=== PATIENT | female | born 1985 | race Hispanic/Latino ===

== ENCOUNTER 2018-07-19 20:26 | Emergency (ER) | payer OTHER ==
[2018-07-19 20:48] LABS: APPEARANCE,URINE SL CLOUDY (CLEAR); BILIRUBIN,URINE NEGATIVE (NEGATIVE); COLOR,URINE YELLOW (YELLOW); GLUCOSE, URINE (UA) NEGATIVE (NEGATIVE); KETONES,URINE NEGATIVE (NEGATIVE); LEUKOCYTE ESTERASE ,URINE NEGATIVE (NEGATIVE); NITRATE,URINE NEGATIVE (NEGATIVE); OCCULT BLOOD,URINE SMALL (NEGATIVE); PROTEIN,URINE NEGATIVE (NEGATIVE); UROBILINOGEN,URINE 0.2 mg/dL (0.2-1.0)
[2018-07-19 20:51] LABS: HCG,QUAL RESULT NEGATIVE (NEGATIVE)
[2018-07-19 20:58] LABS: BACTERIA,URINE Rare /HPF (None Seen); SQUAMOUS EPITHELIAL CELL,UR Few /HPF (0-2); WBC,URINE 0-1 /HPF (0-1)
[2018-07-19 21:04] LABS: BASOPHILS % (AUTO) 1.1 % (0.0-5.0); EOSINOPHILS % (AUTO) 3.1 % (0.0-8.0); HEMATOCRIT 32.7 % (36-48); LYMPHOCYTES % (AUTO) 33.6 % (21.0-51.0); MEAN CORPUSCULAR HEMOGLOBIN 26.3 pg (27.0-33.0); MEAN CORPUSCULAR HGB CONC 33.2 g/dL (32.0-36.0); MEAN CORPUSCULAR VOLUME 79.4 fL (79-99); MONOCYTES % (AUTO) 5.6 % (3.0-13.0); NEUTROPHILS % (AUTO) 56.6 % (40.0-77.0); PLATELET COUNT (AUTO) 303 K/uL (130-400); RED BLOOD CELL COUNT(AUTO) 4.11 MIL/uL (4.00-5.50); RED CELL DISTRIBUTION WIDTH 14.8 % (11.0-15.5); WHITE BLOOD COUNT (AUTO) 8.1 K/uL (4.8-10.8)
[2018-07-19 21:14] LABS: CREATININE 0.7 mg/dL (0.5-1.5); POTASSIUM 3.7 mmol/L (3.5-5.1)
[2018-07-19 21:18] LABS: ALBUMIN 3.9 g/dL (3.5-5.0); BILIRUBIN,TOTAL 0.3 mg/dL (0.2-1.0); TOTAL PROTEIN, SERUM 7.8 g/dL (6.0-8.3)
== END 2018-07-19 22:33 | disposition home or self-care (01) ==
LOC: EDH 20:26
DX: I16.0 Hypertensive urgency (principal); I10 Essential (primary) hypertension; M79.642 Pain in left hand; Z98.51 Tubal ligation status; Z98.890 Other specified postprocedural states
CPT/HCPCS: 36415; 80053; 81001; 81025; 85025

== ENCOUNTER → 2020-04-19 | Outpatient (CLI) | payer BC | END | disposition home or self-care (01) | LOC: SHCH 15:38 | PROVIDERS: ATTEND Internal Medicine | DX: I37.1 Nonrheumatic pulmonary valve insufficiency (principal); R06.01 Orthopnea | CPT/HCPCS: 93306; 93356 ==

== ENCOUNTER 2023-05-09 15:09 | Emergency (ER) | payer BC ==
[~2023-05-09] VITALS: Ht 157.5 cm; Wt 76.7 kg
[2023-05-09 15:46] LABS: BASOPHILS # (AUTO) 0.04 K/uL (0.00-0.20); BASOPHILS % (AUTO) 0.6 % (0.0-5.0); EOSINOPHILS # (AUTO) 0.29 K/uL (0.00-0.70); EOSINOPHILS % (AUTO) 4.2 % (0.0-8.0); HEMATOCRIT 39.3 % (36-48); IMMATURE GRANULOCYTE ABSOLUTE 0.02 K/uL (0-1); LYMPHOCYTES # (AUTO) 2.3 K/uL (1.0-4.8); LYMPHOCYTES % (AUTO) 33.2 % (21.0-51.0); MEAN CORPUSCULAR HGB CONC 33.3 g/dL (32.0-36.0); MEAN CORPUSCULAR VOLUME 89.9 fL (79-99); MONOCYTES # (AUTO) 0.4 K/uL (0.1-1.0); MONOCYTES % (AUTO) 5.2 % (3.0-13.0); NEUTROPHILS # (AUTO) 3.9 K/uL (1.8-7.7); NEUTROPHILS % (AUTO) 56.5 % (40.0-77.0); PLATELET COUNT (AUTO) 237 K/uL (130-400); RED BLOOD CELL COUNT(AUTO) 4.37 MIL/uL (4.00-5.50); RED CELL DISTRIBUTION WIDTH 12.2 % (11.0-15.5); WHITE BLOOD COUNT (AUTO) 6.9 K/uL (4.8-10.8)
[2023-05-09 16:11] LABS: B-TYPE NATRIURETIC PEPTIDE 7 pg/mL (0-100)
[2023-05-09 16:21] LABS: CREATININE 0.7 mg/dL (0.5-1.5); POTASSIUM 3.6 mmol/L (3.5-5.1)
[2023-05-09 16:25] LABS: BILIRUBIN,TOTAL 0.4 mg/dL (0.2-1.0); TOTAL PROTEIN, SERUM 7.8 g/dL (6.0-8.3)
[2023-05-09 17:34] LABS: INR < 0.93 (0.85-1.15); PROTHROMBIN TIME 10.3 SEC (9.6-11.6)
[2023-05-09 18:36] VITALS: BP 133/74; PULSE 78; RESP 18; O2SAT 98
== END 2023-05-09 18:37 | disposition home or self-care (01) ==
LOC: EDH 15:09
DX: R07.89 Other chest pain (principal); F41.9 Anxiety disorder, unspecified; F32.A Depression, unspecified; Z90.710 Acquired absence of both cervix and uterus; Z98.890 Other specified postprocedural states
CPT/HCPCS: 36415; 71045; 80053; 83880; 84484; 85025; 85610; 93005

== ENCOUNTER 2024-05-24 15:57 | Emergency (ER) | payer BC ==
[~2024-05-24] VITALS: Ht 157.5 cm; Wt 74.8 kg
[2024-05-24 16:24] LABS: APPEARANCE,URINE CLEAR (CLEAR); BILIRUBIN,URINE NEGATIVE (NEGATIVE); COLOR,URINE LIGHT-YELLOW (YELLOW); GLUCOSE, URINE (UA) NEGATIVE (NEGATIVE); KETONES,URINE NEGATIVE (NEGATIVE); LEUKOCYTE ESTERASE ,URINE NEGATIVE Leu/uL (NEGATIVE); NITRATE,URINE NEGATIVE (NEGATIVE); OCCULT BLOOD,URINE NEGATIVE (NEGATIVE); PH,URINE 6.5 (5.0-8.0); PROTEIN,URINE NEGATIVE (NEGATIVE); UROBILINOGEN,URINE 0.2 mg/dL (0.2-1.0)
[2024-05-24 16:25] LABS: ADD UA MICROSCOPIC NO
[2024-05-24 16:43] LABS: BASOPHILS # (AUTO) 0.04 K/uL (0.00-0.20); BASOPHILS % (AUTO) 0.5 % (0.0-5.0); EOSINOPHILS # (AUTO) 0.25 K/uL (0.00-0.70); EOSINOPHILS % (AUTO) 3.4 % (0.0-8.0); HEMATOCRIT 38.3 % (36-48); IMMATURE GRANULOCYTE ABSOLUTE 0.03 K/uL (0-1); LYMPHOCYTES # (AUTO) 2.2 K/uL (1.0-4.8); LYMPHOCYTES % (AUTO) 30.1 % (21.0-51.0); MEAN CORPUSCULAR HEMOGLOBIN 30.1 pg (27.0-33.0); MEAN CORPUSCULAR HGB CONC 33.9 g/dL (32.0-36.0); MEAN CORPUSCULAR VOLUME 88.7 fL (79-99); MONOCYTES # (AUTO) 0.3 K/uL (0.1-1.0); NEUTROPHILS # (AUTO) 4.5 K/uL (1.8-7.7); NEUTROPHILS % (AUTO) 61.6 % (40.0-77.0); PLATELET COUNT (AUTO) 234 K/uL (130-400); RED BLOOD CELL COUNT(AUTO) 4.32 MIL/uL (4.00-5.50); RED CELL DISTRIBUTION WIDTH 12.2 % (11.0-15.5); WHITE BLOOD COUNT (AUTO) 7.3 K/uL (4.8-10.8)
[2024-05-24 16:49] LABS: CREATININE 0.6 mg/dL (0.5-1.0); POTASSIUM 3.3 mmol/L (3.5-5.1)
[2024-05-24 17:07] VITALS: BP 150/96; PULSE 95; RESP 18; TEMP 98; O2SAT 100
[2024-05-24] MEDS: PoTASSium BIcarbonate/CIT AC 25 MEQ TABLET.EFF PO STA (17:19)
[2024-05-24] MEDS ORDERED: PHEN-776 PO (17:26)
[2024-05-24] MEDS: ketOROlac 15MG/ML VIAL (15MG/ML) IM ONE (17:30)
== END 2024-05-24 17:43 | disposition home or self-care (01) ==
LOC: EDH 15:57
DX: R35.0 Frequency of micturition (principal); E11.9 Type 2 diabetes mellitus without complications; Z90.710 Acquired absence of both cervix and uterus
CPT/HCPCS: 99284; 80048; 85025; 81003; 36415; 96372; J1885

== ENCOUNTER → 2025-01-29 | Emergency (ER) | payer BC ==
[~2025-01-29] VITALS: Ht 154.9 cm; Wt 72.6 kg
[~2025-01-29] MED LIST: IOHEXOL-350 75 ML VIAL IV ONE; PHEN-776 PO
[2025-01-29 20:29] LABS: IMMATURE GRANULOCYTE ABSOLUTE 0.02 K/uL (0-1); NUCLEATED RED BLOOD CELLS 0.0 % (0.0-0.19); PLATELET COUNT (AUTO) 233 K/uL (130-400); RED BLOOD CELL COUNT(AUTO) 4.25 MIL/uL (4.00-5.50); RED CELL DISTRIBUTION WIDTH 12.5 % (11.0-15.5); WHITE BLOOD COUNT (AUTO) 7.9 K/uL (4.8-10.8)
--- NOTE | 2025-01-29 20:35 | ERN ---
General Chief Complaint: Abdominal Pain Stated Complaint: EPIGASTRIC PAIN Time Seen by MD: 20:03 Source: patient History of Present Illness Initial Comments Patient is a 39-year-old female with past medical history of diabetes and obesity. She takes Mounjaro and metformin for her diabetes. And she takes solifenacin for bladder spasms. Patient comes in with postprandial cramps and nausea and vomiting they start several hours after eating. And are located in her upper abdominal quadrants and then migrates up to her esophagus. She also gets postprandial feelings of obstipation. Patient's past medical history is hy sterectomy in 2011. She has been experiencing these symptoms for approximately two months and they started after she initiated Mounjaro and solifenacin therapy Allergies: Coded Allergies: No Known Drug Allergies (Unverified Allergy, Unknown, 05/09/23) Home Meds Active Scripts Phenazopyridine HCl (Pyridium) 200 Mg Tablet, 200 MG PO TID for painful urination for 2 Days, #6 TAB 0 Refills Prov:LESVIA MOREL [employer] 05/24/24 Past Medical History Past Medical History: Diabetes-Type II, UTI, Other Medical History Other: ACID REFLUX Past Surgical History: Hysterectomy, Constitutional: (-) chills, (-) diaphoresis, (-) fever, (-) malaise, (-) weakness, (-) other documentation EENTM: (-) eye pain, (-) blurred vision, (-) tearing, (-) double vision, (-) ear pain, (-) ear discharge, (-) nose pain, (-) nose congestion, (-) throat pain, (-) Throat swelling, (-) mouth pain, (-) tooth pain, (-) mouth swelling, (-) other documentation Respiratory: (-) cough, (-) orthopnea, (-) short of breath, (-) stridor, (-) wheezing, (-) other documentation Cardiovascular: (-) chest pain, (-) edema, (-) palpitations, (-) syncope, (-) dyspnea on exertion, (-) other documentation Gastrointestinal/Abdominal: (+) nausea, (+) vomiting Physical Exam General Appearance: (+) mild distress Head/Face Trauma: No Eye: bilateral eye normal inspection, bilateral eye PERRL, bilateral eye EOMI Ear, Nose, Throat: (+) hearing grossly normal, (+) normal ENT inspection, (+) moist mucous membraine Neck: (+) normal inspection, (+) supple, (+) full range of motion Respiratory: (+) chest non-tender, (+) lungs clear Heart: (+) regular, (+) no gallop Vascular: (+) no edema, (+) normal peripheral pulse Gastrointestinal: (+) soft, (+) non-tender, (+) no organomegaly, (+) bowel sound present Gastrointestinal Comment Patient's CT scan showed an abdominal umbilical hernia. And follow-up exam confirmed a very small fascial defect at the base of her umbilicus. Easily less than 1 cm. No contents in the hernia sac. Results Laboratory and Microbiology Lab and Micro Result Laboratory Tests Test 01/29/25 20:22 01/29/25 20:41 White Blood Count 7.9 K/uL (4.8-10.8) Red Blood Count 4.25 MIL/uL (4.00-5.50) Hemoglobin 12.7 g/dL (12.0-16.0) Hematocrit 37.5 % (36-48) Mean Corpuscular Volume 88.2 fL (79-99) Mean Corpuscular Hemoglobin 29.9 pg (27.0-33.0) Mean Corpuscular Hemoglobin Concent 33.9 g/dL (32.0-36.0) Red Cell Distribution Width 12.5 % (11.0-15.5) Platelet Count 233 K/uL (130-400) Mean Platelet Volume 10.1 fL (7.5-10.5) Immature Granulocyte % (Auto) 0.3 % (0-1) Neutrophils (%) (Auto) 63.8 % (40.0-77.0) Lymphocytes (%) (Auto) 27.4 % (21.0-51.0) Monocytes (%) (Auto) 3.8 % (3.0-13.0) Eosinophils (%) (Auto) 4.3 % (0.0-8.0) Basophils (%) (Auto) 0.4 % (0.0-5.0) Neutrophils # (Auto) 5.0 K/uL (1.8-7.7) Lymphocytes # (Auto) 2.2 K/uL (1.0-4.8) Monocytes # (Auto) 0.3 K/uL (0.1-1.0) Eosinophils # (Auto) 0.34 K/uL (0.00-0.70) Basophils # (Auto) 0.03 K/uL (0.00-0.20) Absolute Immature Granulocyte (auto 0.02 K/uL (0-1) Nucleated Red Blood Cells 0.0 % (0.0-0.19) Sodium Level 144 mmol/L (136-145) Potassium Level 3.6 mmol/L (3.5-5.1) Chloride Level 104 mmol/L (101-111) Carbon Dioxide Level 27 mmol/L (21-32) Blood Urea Nitrogen 16 mg/dL (7-18) Creatinine 0.6 mg/dL (0.5-1.0) Glomerular Filtration Rate Calc 116 mL/min (>90) Random Glucose 113 mg/dL (70-105) H Total Calcium 9.2 mg/dL (8.5-10.1) Total Bilirubin 0.6 mg/dL (0.2-1.0) Direct Bilirubin 0.2 mg/dL (0.0-0.3) Aspartate Amino Transf (AST/SGOT) 26 U/L (10-37) Alanine Aminotransferase (ALT/SGPT) 25 U/L (12-78) Alkaline Phosphatase 63 U/L (50-136) Total Protein 7.7 g/dL (6.0-8.3) Albumin 4.1 g/dL (3.5-5.0) Urine Color LIGHT-YELLOW (YELLOW) Urine Appearance CLEAR (CLEAR) Urine pH 6.0 (5.0-8.0) Urine Specific Hopkins 1.024 (1.001-1.031) Urine Protein NEGATIVE mg/dL (NEGATIVE) Urine Glucose (UA) NEGATIVE mg/dL (NEGATIVE) Urine Ketones 5 mg/dL (NEGATIVE) H Urine Occult Blood +- (TRACE) (NEGATIVE) H Urine Nitrate NEGATIVE (NEGATIVE) Urine Bilirubin NEGATIVE mg/dL (NEGATIVE) Urine Urobilinogen 0.2 mg/dL (0.2-1.0) Urine Leukocyte Esterase NEGATIVE Addy/uL Urine RBC 2-5 /HPF (0-1) H Urine WBC 0-1 /HPF (0-1) Urine Squamous Epithelial Cells RARE /HPF (0-2) Urine Bacteria RARE /HPF (None Seen) Urine HCG, Qualitative NEGATIVE (NEGATIVE) MDM MDM: Differential diagnosis: Constipation, pancreatitis, dysmotility, Mounjaro side effects, small-bowel obstruction, gallbladder disease. Rationale: Tests considered and ordered secondary to shared decision making include: Previous outside records reviewed: Old ER visits. Risk of complication and/or morbidity or mortality of patient management: None Medications-Per medication reconciliation Need for hospitalization: Patient does meet criteria for hospitalization. Need for emergency major/minor surgery: No There are no social concerns with this patient. Prescription drug management Prescriptions will include symptomatic care Patient's prior external medical records from other ER visits were reviewed by me as indicated. Prior testing and results from previous visits were reviewed. Prior tests were taken into account with medical decision making and resource utilization, independent historian/historians were used to obtain complete medical history. I independently interpreted the test that were performed, results were reviewed by me and considered findings on radiology if ordered. Patient's laboratory studies were unremarkable. CT scan showed a moderate stool burden as well as possible fecalization of material in the patient's stomach with thickened stomach wall. Patient also has a renal stone on the left side. It is nonobstructing. I think patient's symptoms are relating to her Mounjaro. It is known to cause gastroparesis pancreatitis and feelings of fullness and delayed gastric emptying postprandial. The umbilical hernia is trivial and small an unlikely to cause problems. The renal stone maybe related to her symptoms but it does not sound like it. Plus she does not have any flank pain. She should follow-up with a urologist. ED Course Orders Procedure Category Date Status Time Cbc With Differential LAB 01/29/25 Complete 20:16 Basic Metabolic Panel LAB 01/29/25 Complete 20:16 Hepatic Function Panel LAB 01/29/25 Complete 20:16 Urinalysis Profile LAB 01/29/25 Complete 20:34 ,Urine Test LAB 01/29/25 Complete 20:34 Ketorolac PHA 01/29/25 Complete Tromethamine 30mg/Ml 21:00 Lactated Ringers PHA 01/29/25 Complete 1000ml (Lactated 20:35 Ct Abdomen/Pelvis CT 01/29/25 Resulted W/Wo Contras 20:35 Iohexol (Omnipaque) PHA 01/29/25 Complete 21:01 Current Medications Medications (Trade) Dose Ordered Sig/Shu Route PRN Reason Start Time Stop Time Status Last Admin Dose Admin Iohexol (Omnipaque) 75 ml STK-MED ONCE IV 01/29/25 21:01 01/29/25 21:02 DC Ketorolac Tromethamine (toRADol) 30 mg ONCE ONCE IVP 01/29/25 21:00 01/29/25 21:01 DC 01/29/25 20:46 Lactated Ringer's (Lactated Ringers 1000ml) 1,000 ml BOLUS STAT IV 01/29/25 20:35 01/29/25 20:39 DC 01/29/25 20:46 Vital Signs Date Time Temp Pulse Resp B/P (MAP) Pulse Ox O2 Delivery O2 Flow Rate FiO2 01/29/25 20:03 98.2 89 16 136/87 98 Room Air DX & DISP Disposition: Discharge Departure Impression: Primary Impression: Delayed gastric emptying Additional Impressions: Renal calculus, left, Umbilical hernia, Urinary frequency Condition: Stable Additional Instructions: You have a left renal stone which is not obstructing the flow of urine. I do not see any inflammation signs surrounding the stone. You need to follow-up with the urologist go. You have a small umbilical hernia which is not causing any problems and likely unrelated to your symptoms. I think your symptoms of bloating postprandial pain and cramping maybe due to side effects from the Mounjaro. You do have a relatively modest stool burden from slow transit through the colon and this could be a side effect of the Mounjaro as well. I would talk to your primary care physician about decreasing the dose of the Mounjaro. You do not have a small-bowel obstruction I do not think your symptoms of bloating are due to adhesions from the hysterectomy. Referrals: SELF,REFERRAL (PCP) LEAH COLBY MD Jan 29, 2025 20:35
[2025-01-29 20:37] LABS: CREATININE 0.6 mg/dL (0.5-1.0); GLOMERULAR FILTR. RATE CALC 116.0 mL/min (>90); GLUCOSE,RANDOM 113.0 mg/dL (70-105); SODIUM SERUM 144.0 mmol/L (136-145); UREA NITROGEN, BLOOD 16.0 mg/dL (7-18)
[2025-01-29 20:42] LABS: ASPARTATE AMINOTRANSFERASE 26.0 U/L (10-37); TOTAL PROTEIN, SERUM 7.7 g/dL (6.0-8.3)
[2025-01-29] MEDS: LACTATED RINGERS 1000ML IV STA (20:46)
[2025-01-29 20:51] LABS: APPEARANCE,URINE CLEAR (CLEAR); GLUCOSE, URINE (UA) NEGATIVE (NEGATIVE); LEUKOCYTE ESTERASE ,URINE NEGATIVE Leu/uL (NEGATIVE); NITRATE,URINE NEGATIVE (NEGATIVE); OCCULT BLOOD,URINE +- (TRACE) (NEGATIVE)
[2025-01-29 20:52] LABS: ADD UA MICROSCOPIC YES; HCG,QUALITATIVE URINE NEGATIVE (NEGATIVE)
[2025-01-29 20:54] LABS: SQUAMOUS EPITHELIAL CELL,UR RARE /HPF (0-2)
--- NOTE | 2025-01-29 22:09 | HMCIMG ---
EXAM: CT Abdomen and Pelvis without and with IV contrast CLINICAL HISTORY: Postprandial pain. TECHNIQUE: Pre and postcontrast thin collimated axial CT images of the abdomen and pelvis were obtained with sagittal and coronal reformatted images also submitted. CT scan is done according to ALARA (As Low As Reasonably Achievable). COMPARISON: None. FINDINGS: Unremarkable visualized lung parenchyma. No focal abnormality within the liver, gallbladder, pancreas, spleen, or adrenals. Nonobstructive 5.5 mm calculus in the left kidney lower pole calyx. No other renal or ureteric calculus or hydronephrosis. No renal mass or cyst. Moderate amount of fecal residue in the large bowel loops with scattered diverticulosis of the distal descending and proximal sigmoid colon without evidence of diverticulitis. Omental fat containing umbilical hernia. There is no obvious bowel wall thickening. Bowel loops are normal in caliber without evidence of obstruction or ileus. The appendix is normal. There is no abnormality within the urinary bladder. Post-hysterectomy status. Bilateral ovaries appear unremarkable. No adnexal mass. Abdominal and pelvic vessels are patent. Normal contrast opacification of the abdominal aorta and its branches. No significant narrowing of the celiac trunk or superior mesenteric artery. No lymphadenopathy. No free fluid. There is no acute osseous abnormality. IMPRESSIONS: No acute process in the abdomen or pelvis. Nonobstructive 5.5 mm calculus in the left kidney lower pole calyx. A component of mild constipation is present in the colon. Scattered diverticulosis of the distal descending and proximal sigmoid colon without evidence of diverticulitis. Small umbilical hernia. Status post hysterectomy. Unremarkable ovaries. No acute abnormality in the pelvis. /[employer]
[2025-01-29 23:43] VITALS: BP 134/85; PULSE 83; RESP 18; TEMP 98.4; O2SAT 99
== END ==
LOC: EDH 20:01
DX: K30 Functional dyspepsia (principal); N20.0 Calculus of kidney; K42.9 Umbilical hernia without obstruction or gangrene; R35.0 Frequency of micturition; E11.43 Type 2 diabetes mellitus with diabetic autonomic (poly)neuropathy; E66.9 Obesity, unspecified; Z90.710 Acquired absence of both cervix and uterus
CPT/HCPCS: 99284; 74178; 96374; 80076; 80048; 85025; 81001; 81025; 36415; J1885; J7120; Q9967